=== PATIENT | female | born 1935 | race Caucasian/White ===

== ENCOUNTER 2017-07-19 16:17 | Emergency (ER) | payer MEDICARE, OTHER ==
[2017-07-19 16:33] VITALS: BP 130/72
[2017-07-19] MEDS ORDERED: BSS OPTH.SOL* BTL OPHTHALMIC ONE (16:42)
[2017-07-19] MEDS ORDERED: Fluorescein Sodium TOPICAL* 1 MG TEST OPHTHALMIC ONE (16:43)
[2017-07-19] MEDS ORDERED: Fluorescein Sod TOPICAL 0.6* 0.6 MG TEST OPHTHALMIC ONE (16:49)
--- NOTE | 2017-07-19 17:32 | UC ---
Skin Complaint HPI - HPI Summary HPI Summary: Patient to the urgent care tonight with her son and [id number]. Her son picked her up in [place] drover here and wanted her checked as he is concerned that there was erythema above her left eye she was also complaining of blurriness in her left eye and her eye was injected. The son is concerned that his mother may have fallen, the mother has no memory of falling. Patient does report the skin being sensitive to touch she believes the erythema has been there for 2 or 3 days. Patient believes she got a shingles vaccine in the last year - History of Current Complaint Chief Complaint: UCEye Time Seen by Provider: 07/19/17 16:26 Stated Complaint: FELL AND HAS BLURRY VISION Hx Obtained From: Patient ?: No Onset/Duration: Gradual Onset, Lasting Days - 2-3, Still Present Timing: Constant Onset Severity: Mild Current Severity: Mild Pain Intensity: 1 Pain Scale Used: 0-10 Numeric Location: Discrete Aggravating Factor(s): Nothing Alleviating Factor(s): Nothing - Above Associated Signs & Symptoms: Positive: Negative - Allergy/Home Medications Allergies/Adverse Reactions: Allergies Allergy/AdvReac Type Severity Reaction Status Date / Time No Known Allergies Allergy Verified 07/19/17 16:34 Home Medications: Home Medications Atorvastatin* [Lipitor 10 MG*] 10 mg PO DAILY 07/19/17 [History Confirmed ] Review of Systems Constitutional: Negative Skin: Rash Eyes: Negative, Eye Redness - Left eye is injected there is no drainage noted ENT: Negative Respiratory: Negative Cardiovascular: Negative Gastrointestinal: Negative Genitourinary: Negative Motor: Negative Neurovascular: Negative Musculoskeletal: Negative Neurological: Negative Psychological: Negative Is Patient Immunocompromised?: No All Other Systems Reviewed And Are Negative: Yes PMH/Surg Hx/FS Hx/Imm Hx Previously Healthy: No Endocrine History: Dyslipidemia - Surgical History Surgical History: None - Family History Known Family History: Positive: Other - Dyslipidemia - Social History Occupation: Retired Lives: Alone Alcohol Use: Occasionally Substance Use Type: None Smoking Status (MU): Never Smoked Tobacco Physical Exam Triage Information Reviewed: Yes Appearance: Well-Appearing, No Pain Distress, Well-Nourished Vital Signs: Initial Vital Signs Temp 98.6 F 07/19/17 16:26 Pulse 86 07/19/17 16:26 Resp 18 07/19/17 16:26 BP 130/72 07/19/17 16:26 Pulse Ox 99 07/19/17 16:26 Vital Signs Reviewed: Yes Eye Exam: Other Eyes: Positive: Conjunctiva Clear - Right eye, Conjunctiva Inflamed - Left eye ENT Exam: Normal ENT: Positive: Normal ENT inspection, Hearing grossly normal, Pharynx normal, TMs normal, Uvula midline. Negative: Nasal congestion, Trismus, Muffled voice, Hoarse voice, Dental tenderness, Sinus tenderness Dental Exam: Normal Neck exam: Normal Neck: Positive: Supple, Nontender, No Lymphadenopathy Respiratory Exam: Normal Respiratory: Positive: Chest non-tender, Lungs clear, Normal breath sounds, No respiratory distress, No accessory muscle use Cardiovascular Exam: Normal Cardiovascular: Positive: RRR, No Murmur, Pulses Normal, Brisk Capillary Refill Musculoskeletal Exam: Normal Musculoskeletal: Positive: Strength Intact, ROM Intact, No Edema Neurological Exam: Normal Neurological: Positive: Alert, Muscle Tone Normal Psychological Exam: Normal Skin Exam: Other Skin: Positive: Other - Patient has a pustular rash with some scabbing above her left eyebrow. Patient's I was sustained a dendritic lesion was noted at 1: 00 on cornea approximately 3 mm long Course/Dx - Course Course Of Treatment: Will prescribe patient Viroptic eyedrops, acyclovir. Will have patient follow up with investigative agent first thing Sunday (tomorrow) morning - Diagnoses Provider Diagnoses: Shingles, ophthalmic shingles - Physician Notification/Consults Discussed Patient Care With: Harriett Dozier - during treatment and prior to discharge Discharge - Sign-Out/Discharge Documenting (check all that apply): Discharge - Discharge Plan Condition: Stable Disposition: HOME Prescriptions: Acyclovir* [Zovirax 400 MG TAB*] 800 mg PO 5ID 7 Days #70 tab Trifluridine 1% OPTH.LAURA*(NF) [Viroptic 1% OPTH.LAURA*] 1 drop .SEE ORDER Q2HR #1 btl Patient Education Materials: Shingles (ED) Referrals: Graeme Whitt MD [Medical Doctor] - 1 Day Shane Wilkerson MD [Medical Doctor] - 1 Day Additional Instructions: Mrs. Rangel, If you are unable to get into an investigative agent tomorrow, I will be here at the [place] urgent care, my phone number is [phone] please call me and I will find you follow-up. Steph Espinoza Disposition and Condition Condition: STABLE Disposition: HOME
== END 2017-07-19 17:43 | disposition home or self-care (01) ==
LOC: UCEAST 16:17
DX: B02.9 Zoster without complications (principal); B02.30 Zoster ocular disease, unspecified; E78.5 Hyperlipidemia, unspecified
CPT/HCPCS: 99202; A9270-GY; G0463